=== PATIENT | female | born 1950 | race Caucasian/White ===

== ENCOUNTER → 2017-08-11 | Outpatient (CLI) | payer OTHER | LOC: M WHC 16:17 | DX: Z12.31 Encounter for screening mammogram for malignant neoplasm of breast (principal) ==

== ENCOUNTER → 2019-03-30 | Outpatient (REF) | payer OTHER ==
[2019-03-30 17:10] LABS: IRON (FE) 107 UG/DL (50-170)
[2019-04-02 11:55] LABS: HEPATITIS B SURFACE ANTIGEN NEGATIVE (NEGATIVE)
[2019-04-02 12:23] LABS: HEPATITIS B CORE ANTIBODY IGM NEGATIVE (NEGATIVE)
[2019-04-02 12:25] LABS: HEPATITIS A ANTIBODY IGM NEGATIVE (NEGATIVE)
== END ==
LOC: M LAB REF 16:17
PROVIDERS: ATTEND Nurse Practitioner Adult Health
DX: R74.8 Abnormal levels of other serum enzymes (principal)

== ENCOUNTER → 2019-04-12 | Outpatient (REF) | payer OTHER ==
[2019-04-18 15:18] LABS: Lyme Disease IgG Ab 18 kDa Ban Present (.); Lyme Disease IgG Ab 23 kDa Ban Present (.); Lyme Disease IgG Ab 28 kDa Ban Absent (.); Lyme Disease IgG Ab 30 kDa Ban Absent (.); Lyme Disease IgG Ab 39 kDa Ban Present (.); Lyme Disease IgG Ab 41 kDa Ban Present (.); Lyme Disease IgG Ab 45 kDa Ban Present (.); Lyme Disease IgG Ab 58 kDa Ban Present (.); Lyme Disease IgG Ab 66 kDa Ban Absent (.); Lyme Disease IgG Ab 93 kDa Ban Absent (.); Lyme Disease IgG West Blot Int Positive (.); Lyme Disease IgG/IgM Antibodie 2.96 ISR (0.00-0.90); Lyme Disease IgM Ab 23 kDa Ban Present (.); Lyme Disease IgM Ab 39 kDa Ban Present (.); Lyme Disease IgM Ab 41 kDa Ban Present (.); Lyme Disease IgM West Blot Int Positive (.)
== END ==
LOC: M LAB REF 12:50
PROVIDERS: ATTEND Nurse Practitioner Adult Health
DX: E83.52 Hypercalcemia (principal)

== ENCOUNTER → 2019-09-25 | Outpatient (CLI) | payer OTHER ==
--- NOTE | 2019-09-26 08:43 | REPMRS ---
Patient History The patient states she had a clinical breast exam in Jun 2019.Family history of colorectal cancer at age 69 in maternal aunt. No Hormone Replacement Therapy Digital Woman Screen Mammo: September 25, 2019 - Exam #: [id number] Bilateral CC and MLO view(s) were taken. Technologist: Shadia Lea, Technologist Prior study comparison: August 17, 2018, bilateral digital woman screen mammo performed at [facility]. August 11, 2017, digital woman screen mammo performed at [facility]. August 04, 2016, digital woman screen mammo performed at [facility]. FINDINGS: There are scattered fibroglandular densities. There are scattered benign coarse calcifications again noted. There is a stable nodule in the inferior and medial quadrant of each breast unchanged. There has been no change in the appearance of the mammogram from the prior studies. There is a mild amount of scattered fibroglandular density which is fairly symmetric. There is no interval development of dominant mass, architectural distortion, or grouped microcalcification suggestive of malignancy. 3-D tomosynthesis shows no additional findings. Assessment: BI-RADS/ACR category 2 mammogram. Benign Findings. Recommendation Routine screening mammogram of both breasts in 1 year (for women over age 40). This patient's Lifetime Breast Cancer Risk is estimated at 6.5 %. This mammogram was interpreted with the aid of an FDA-approved computer-aided dectection system. Electronically Signed By: Santo Garcia MD 09/26/19 [id number]
== END ==
LOC: M WHC 16:08
PROVIDERS: ATTEND Nurse Practitioner Adult Health
DX: Z12.31 Encounter for screening mammogram for malignant neoplasm of breast (principal)

== ENCOUNTER → 2020-07-22 | Outpatient (CLI) | payer SELFPAY | LOC: M LABSMTC 14:02 | PROVIDERS: ATTEND Pediatrics | DX: Z11.59 Encounter for screening for other viral diseases (principal) ==

== ENCOUNTER → 2020-10-27 | Outpatient (CLI) | payer MEDICARE, OTHER ==
--- NOTE | 2020-10-27 21:20 | REP ---
INDICATION: BILATERAL LEG PAIN COMPARISON: None. TECHNIQUE: AP, lateral, bilateral oblique, and coned-down views of the lumbar spine. FINDINGS: Alignment and lordosis maintained. Vertebral bodies are intact. Advanced multilevel degenerative changes include endplate sclerosis with disc space narrowing, osteophytosis and facet hypertrophy. No acute fracture/compression injury or subluxation. IMPRESSION: Advanced multilevel degenerative spondylosis. <Electronically signed by Castillo Monae > 10/27/20 [id number]
== END ==
LOC: M WUC 14:11
PROVIDERS: ATTEND Nurse Practitioner Adult Health
DX: M47.816 Spondylosis without myelopathy or radiculopathy, lumbar region (principal); M79.604 Pain in right leg; M79.605 Pain in left leg

== ENCOUNTER → 2020-10-28 | Outpatient (CLI) | payer MEDICARE ==
--- NOTE | 2020-10-28 12:02 | REPMRS ---
Patient History The patient states she has not had a clinical breast exam in over a year. Family history of colorectal cancer at age 69 in maternal aunt. No Hormone Replacement Therapy Digital Woman Screen Mammo: October 28, 2020 - Exam #: [id number] Bilateral CC and MLO view(s) were taken. Technologist: Natalie Stephens, Technologist Prior study comparison: September 25, 2019, bilateral digital woman screen mammo performed at [facility]. August 17, 2018, bilateral digital woman screen mammo performed at [facility]. August 11, 2017, digital woman screen mammo performed at [facility]. FINDINGS: There are scattered fibroglandular densities. The Volpara volumetric breast density category is:B. There are stable nodular breast parenchymal changes bilaterally. There has been no change in the appearance of the mammogram from the prior studies. There is a mild amount of scattered fibroglandular density which is fairly symmetric. There is no interval development of dominant mass, architectural distortion, or grouped microcalcification suggestive of malignancy. 3-D tomosynthesis shows no additional findings. Assessment: BI-RADS/ACR category 2 mammogram. Benign Findings. Recommendation Routine screening mammogram of both breasts in 1 year (for women over age 40). This patient's [facility] Lifetime Breast Cancer Risk is estimated at 6.2 %. This mammogram was interpreted with the aid of an FDA-approved computer-aided dectection system. Electronically Signed By: Santo Garcia MD 10/28/20 [id number]
== END ==
LOC: M WHC 10:24
PROVIDERS: ATTEND Nurse Practitioner Adult Health
DX: Z12.31 Encounter for screening mammogram for malignant neoplasm of breast (principal)

== ENCOUNTER → 2021-05-13 | Outpatient (REF) | payer MEDICARE | LOC: M LAB REF 17:53 | PROVIDERS: ATTEND Internal Medicine | DX: E83.52 Hypercalcemia (principal) ==

== ENCOUNTER → 2021-12-02 | Outpatient (CLI) | payer MEDICARE | LOC: M WHC 07:42 | PROVIDERS: ATTEND Nurse Practitioner Adult Health | DX: R92.2 Inconclusive mammogram (principal) | CPT/HCPCS: 77065; G0279 ==

== ENCOUNTER → 2022-01-05 | Outpatient (REF) | payer MEDICARE | LOC: M LAB REF 16:10 | PROVIDERS: ATTEND Nurse Practitioner Adult Health | DX: E83.52 Hypercalcemia (principal) ==

== ENCOUNTER 2022-11-23 05:59 | Day surgery (SDC) | payer MEDICARE ==
[~2022-11-23] VITALS: Ht 154.9 cm; Wt 65.8 kg
[~2022-11-23 05:59] MED LIST: CHOL10007 PO; CINN500C12 PO; ENAL1TAB46 PO; KP F1200 PO; MAGN400T2 PO; METF-838 PO; MV-M1CAP8 PO
[2022-11-23] MEDS ORDERED: CYCLOPENTOLATE 1% OPHTH SOLN 2ML BTL OD SCH (06:00)
[2022-11-23] MEDS ORDERED: PHENYLEPHRINE 2.5% OPHTH SOL 2ML OD SCH (06:00)
[2022-11-23] MEDS ORDERED: OFLOXACIN 0.3 % (OCUFLOX) OPTH SOL 5ML OD SCH (06:00)
[2022-11-23] MEDS ORDERED: TROPICAMIDE 1% OPHTH SOLN 15ML OD SCH (06:00)
[2022-11-23] MEDS ORDERED: PROPARACAINE 0.5% OPHTH SOL 15ML OD ONE (06:00)
[2022-11-23] MEDS ORDERED: LIDOCAINE 1% SDV 5ML VIAL As Ordered ONE (06:35)
[2022-11-23] MEDS ORDERED: CEFUROXIME 1MG/0.1ML INTRACAMERAL INJ As Ordered ONE (06:36)
[2022-11-23] MEDS ORDERED: BSS IRR 500ML/OMIDRIA 4ML IRR BAG (OR ONLY) As Ordered ONE (06:43)
[2022-11-23] MEDS ORDERED: fentaNYL 100 MCG/2 ML INJECTION As Ordered ONE (07:33)
[2022-11-23] MEDS ORDERED: ONDANSETRON 4MG 2ML VIAL As Ordered ONE (07:33)
[2022-11-23] MEDS ORDERED: MIDAZOLAM INJ 2MG/2ML VIAL As Ordered ONE (07:33)
[2022-11-23 07:56] VITALS: BP 145/73
== END 2022-11-23 08:24 | disposition home or self-care (01) ==
LOC: M SDC 05:59
PROVIDERS: ATTEND Ophthalmology
DX: H25.11 Age-related nuclear cataract, right eye (principal); I10 Essential (primary) hypertension; E11.9 Type 2 diabetes mellitus without complications; Z90.710 Acquired absence of both cervix and uterus; Z98.51 Tubal ligation status; Z88.2 Allergy status to sulfonamides; Z88.8 Allergy status to other drugs, medicaments and biological substances; Z79.899 Other long term (current) drug therapy; Z79.84 Long term (current) use of oral hypoglycemic drugs
CPT/HCPCS: 66984; J1097; J2250; J2405; J3010; V2632

== ENCOUNTER 2023-02-01 06:01 | Day surgery (SDC) | payer MEDICARE ==
[~2023-02-01] VITALS: Ht 154.9 cm; Wt 66.1 kg
[~2023-02-01 06:01] MED LIST changes: +CYCLOPENTOLATE 1% OPHTH SOLN 2ML BTL OS SCH; +OFLOXACIN 0.3 % (OCUFLOX) OPTH SOL 5ML OS SCH; +PHENYLEPHRINE 2.5% OPHTH SOL 2ML OS SCH; +PRED1SUS30 OD; +PROPARACAINE 0.5% OPHTH SOL 15ML OS ONE; +TROPICAMIDE 1% OPHTH SOLN 15ML OS SCH
[2023-02-01] MEDS ORDERED: INSULIN LISPRO (NovoLOG) PER UNIT SC PRN (06:10)
[2023-02-01] MEDS ORDERED: LIDOCAINE 1% SDV 5ML VIAL As Ordered ONE (06:37)
[2023-02-01] MEDS ORDERED: CEFUROXIME 1MG/0.1ML INTRACAMERAL INJ As Ordered ONE (06:38)
[2023-02-01] MEDS ORDERED: BSS IRR 500ML/OMIDRIA 4ML IRR BAG (OR ONLY) As Ordered ONE (06:38)
[2023-02-01] MEDS ORDERED: fentaNYL 100 MCG/2 ML INJECTION As Ordered ONE (07:39)
[2023-02-01] MEDS ORDERED: MIDAZOLAM INJ 2MG/2ML VIAL As Ordered ONE (07:39)
[2023-02-01] MEDS ORDERED: ONDANSETRON 4MG 2ML VIAL As Ordered ONE (07:40)
[2023-02-01 07:55] VITALS: BP 158/80; TEMP 97; O2SAT 97
== END 2023-02-01 08:30 | disposition home or self-care (01) ==
LOC: M SDC 06:01
PROVIDERS: ATTEND Ophthalmology
DX: H25.12 Age-related nuclear cataract, left eye (principal); I10 Essential (primary) hypertension; E11.9 Type 2 diabetes mellitus without complications; E78.5 Hyperlipidemia, unspecified; Z79.84 Long term (current) use of oral hypoglycemic drugs; Z79.52 Long term (current) use of systemic steroids; Z88.8 Allergy status to other drugs, medicaments and biological substances; Z88.2 Allergy status to sulfonamides
CPT/HCPCS: 66984; J0697; J1097; J2250; J2405; J3010; V2632

== ENCOUNTER → 2024-02-27 | Outpatient (REF) | payer MEDICARE ==
[~2024-02-27] MED LIST changes: -CYCLOPENTOLATE 1% OPHTH SOLN 2ML BTL OS SCH; -OFLOXACIN 0.3 % (OCUFLOX) OPTH SOL 5ML OS SCH; -PHENYLEPHRINE 2.5% OPHTH SOL 2ML OS SCH; -PROPARACAINE 0.5% OPHTH SOL 15ML OS ONE; -TROPICAMIDE 1% OPHTH SOLN 15ML OS SCH
[2024-02-27 19:13] LABS: CREATININE, URINE 77.2 MG/DL; MALB URINE SIEMENS < 3.0 MG/L; MAU/CREAT RATIO 3.8 MCG/MG (0.0-30.0)
== END ==
LOC: M LABWUC 12:29
PROVIDERS: ATTEND Registered Nurse
DX: M62.838 Other muscle spasm (principal); E11.9 Type 2 diabetes mellitus without complications

== ENCOUNTER → 2024-07-10 | Outpatient (REF) | payer MEDICARE | LOC: M SFHCADAM 08:56 | PROVIDERS: ATTEND Nurse Practitioner Family | DX: R21 Rash and other nonspecific skin eruption (principal) ==

== ENCOUNTER → 2024-07-10 | Outpatient (CLI) | payer MEDICARE ==
[2024-07-10 12:15] LABS: BASO # 0.1 10^3/uL (0.0-0.2); BASO % 0.7 % (0.0-1.0); EOS # 0.2 10^3/uL (0.0-0.5); EOS % 2.3 % (0.0-3.0); HEMATOCRIT 43.4 % (36.0-47.0); HEMOGLOBIN 14.9 g/dl (12.0-15.5); LYMPH # 1.8 10^3/uL (1.5-5.0); LYMPH % 25.4 % (24.0-44.0); MEAN CORPUSCULAR HEMOGLOBIN 30.9 pg (27.0-33.0); MEAN CORPUSCULAR HGB CONC 34.3 g/dl (32.0-36.5); MONO # 0.6 10^3/uL (0.0-0.8); MONO % 8.8 % (2.0-8.0); NEUTROPHILS # 4.3 10^3/uL (1.5-8.5); NEUTROPHILS % 62.4 % (36.0-66.0); PLATELET COUNT, AUTOMATED 243 10^3/uL (150-450); RED BLOOD COUNT 4.82 10^6/uL (4.00-5.40); WHITE BLOOD COUNT 6.9 10^3/uL (4.0-10.0)
[2024-07-10 12:23] LABS: LDH LACTATE DEHYDROGENASE 152 U/L (120-246)
[2024-07-10 12:24] LABS: ALBUMIN 3.9 G/DL (3.2-5.2); ALKALINE PHOSPHATASE 91 U/L (35-104); ALT/SGPT 29 U/L (7.0-40); AST/SGOT 16 U/L (<34); BILIRUBIN,TOTAL 0.3 MG/DL (0.3-1.2); BLOOD UREA NITROGEN 23 MG/DL (9-23); CALCIUM LEVEL 10.3 MG/DL (8.3-10.6); CARBON DIOXIDE LEVEL 28 MMOL/L (20-31); CHLORIDE LEVEL 100 MMOL/L (98-107); CREATININE FOR GFR 0.77 MG/DL (0.55-1.30); GLOMERULAR FILTRATION RATE > 60.0 (>39); GLUCOSE, FASTING 186 MG/DL (74-106); POTASSIUM SERUM 4.1 MMOL/L (3.5-5.1); SODIUM LEVEL 138 MMOL/L (136-145); TOTAL PROTEIN 7.1 G/DL (5.7-8.2)
== END ==
LOC: M WUC 09:55
PROVIDERS: ATTEND Nurse Practitioner Family
DX: R21 Rash and other nonspecific skin eruption (principal)

== ENCOUNTER → 2024-07-11 | Outpatient (REF) | payer MEDICARE | LOC: M SFHCDERM 15:16 | PROVIDERS: ATTEND Nurse Practitioner Family | DX: R21 Rash and other nonspecific skin eruption (principal); Z53.9 Procedure and treatment not carried out, unspecified reason ==

== ENCOUNTER → 2024-07-16 | Outpatient (CLI) | payer MEDICARE | LOC: M LAB 07:35 | PROVIDERS: ATTEND Nurse Practitioner Family | DX: R21 Rash and other nonspecific skin eruption (principal) ==

== ENCOUNTER → 2024-08-27 | Outpatient (CLI) | payer MEDICARE ==
[2024-08-27 11:13] LABS: BASO # 0.1 10^3/uL (0.0-0.2); BASO % 0.8 % (0.0-1.0); EOS # 0.1 10^3/uL (0.0-0.5); EOS % 1.3 % (0.0-3.0); HEMATOCRIT 44.9 % (36.0-47.0); HEMOGLOBIN 15.3 g/dl (12.0-15.5); LYMPH # 1.6 10^3/uL (1.5-5.0); LYMPH % 25.4 % (24.0-44.0); MEAN CORPUSCULAR HEMOGLOBIN 30.4 pg (27.0-33.0); MEAN CORPUSCULAR HGB CONC 34.1 g/dl (32.0-36.5); MEAN CORPUSCULAR VOLUME 89.3 fl (80.0-96.0); MONO # 0.5 10^3/uL (0.0-0.8); MONO % 8.2 % (2.0-8.0); NEUTROPHILS # 4.1 10^3/uL (1.5-8.5); PLATELET COUNT, AUTOMATED 231 10^3/uL (150-450); RED BLOOD COUNT 5.03 10^6/uL (4.00-5.40); WHITE BLOOD COUNT 6.4 10^3/uL (4.0-10.0)
[2024-08-27 11:28] LABS: HEMOGLOBIN A1c 7.4 % (4.0-6.0)
[2024-08-27 11:31] LABS: ALBUMIN 3.9 G/DL (3.2-5.2); ALKALINE PHOSPHATASE 87 U/L (35-104); ALT/SGPT 27 U/L (7.0-40); AST/SGOT 20 U/L (<34); BILIRUBIN,TOTAL 0.6 MG/DL (0.3-1.2); BLOOD UREA NITROGEN 20 MG/DL (9-23); CALCIUM LEVEL 9.4 MG/DL (8.3-10.6); CARBON DIOXIDE LEVEL 30 MMOL/L (20-31); CHLORIDE LEVEL 101 MMOL/L (98-107); CHOLESTEROL LEVEL 228 MG/DL (<200); CREATININE FOR GFR 0.79 MG/DL (0.55-1.30); GLOMERULAR FILTRATION RATE > 60.0 (>39); GLUCOSE, FASTING 131 MG/DL (74-106); HDL CHOLESTEROL 48.5 MG/DL (>40); LDL CHOLESTEROL 134.9 MG/DL (<100); NON-HDL-C 179.5 MG/DL; POTASSIUM SERUM 4.6 MMOL/L (3.5-5.1); SODIUM LEVEL 138 MMOL/L (136-145); TOTAL 25(OH) VITAMIN D 44.3 NG/ML (20.0-100.0); TOTAL PROTEIN 7.3 G/DL (5.7-8.2); TRIGLYCERIDES LEVEL 223 MG/DL (<150)
== END ==
LOC: M WUC 08:28
PROVIDERS: ATTEND Registered Nurse
DX: E78.2 Mixed hyperlipidemia (principal); E11.9 Type 2 diabetes mellitus without complications; I10 Essential (primary) hypertension; E55.9 Vitamin D deficiency, unspecified

== ENCOUNTER → 2024-11-19 | Outpatient (CLI) | payer MEDICARE ==
[2024-11-19 13:08] LABS: HEMOGLOBIN A1c 6.9 % (4.0-6.0)
== END ==
LOC: M WUC 08:26
PROVIDERS: ATTEND Registered Nurse
DX: E11.9 Type 2 diabetes mellitus without complications (principal)

== ENCOUNTER → 2025-04-29 | Outpatient (CLI) | payer MEDICARE ==
[2025-04-29 12:58] LABS: BASO # 0.1 10^3/uL (0.0-0.2); BASO % 0.7 % (0.0-1.0); EOS # 0.1 10^3/uL (0.0-0.5); EOS % 0.7 % (0.0-3.0); LYMPH # 1.9 10^3/uL (1.5-5.0); LYMPH % 26.8 % (24.0-44.0); MONO # 0.8 10^3/uL (0.0-0.8); MONO % 11.1 % (2.0-8.0); NEUTROPHILS # 4.2 10^3/uL (1.5-8.5); NEUTROPHILS % 60.3 % (36.0-66.0); PLATELET COUNT, AUTOMATED 256 10^3/uL (150-450)
[2025-04-29 13:16] LABS: ESTIMATED AVERAGE GLUCOSE 166.0 MG/DL (60-110)
[2025-04-29 13:30] LABS: ALT/SGPT 29.0 U/L (7.0-40); AST/SGOT 24.0 U/L (<34); CALCIUM LEVEL 10.0 MG/DL (8.3-10.6); CARBON DIOXIDE LEVEL 29.0 MMOL/L (20-31); CHLORIDE LEVEL 100.0 MMOL/L (98-107); CHOLESTEROL LEVEL 239.0 MG/DL (<200); CHOLESTEROL RISK RATIO 4.86 (<5); CREATININE FOR GFR 0.86 MG/DL (0.55-1.30); GLOMERULAR FILTRATION RATE 71.7 (>39); LDL CHOLESTEROL 143.9 MG/DL (<100); NON-HDL-C 189.9 MG/DL; POTASSIUM SERUM 4.3 MMOL/L (3.5-5.1); SODIUM LEVEL 137.0 MMOL/L (136-145); TRIGLYCERIDES LEVEL 230.0 MG/DL (<150)
== END ==
LOC: M WUC 08:02
PROVIDERS: ATTEND Registered Nurse
DX: E11.9 Type 2 diabetes mellitus without complications (principal); E78.2 Mixed hyperlipidemia

== ENCOUNTER → 2025-07-22 | Outpatient (CLI) | payer MEDICARE ==
[2025-07-22 12:36] LABS: BASO # 0.1 10^3/uL (0.0-0.2); BASO % 0.9 % (0.0-1.0); EOS # 0.1 10^3/uL (0.0-0.5); EOS % 1.0 % (0.0-3.0); LYMPH # 1.8 10^3/uL (1.5-5.0); LYMPH % 22.3 % (24.0-44.0); MONO # 0.8 10^3/uL (0.0-0.8); MONO % 10.3 % (2.0-8.0); NEUTROPHILS # 5.1 10^3/uL (1.5-8.5); NEUTROPHILS % 65.2 % (36.0-66.0); PLATELET COUNT, AUTOMATED 268 10^3/uL (150-450)
[2025-07-22 13:02] LABS: ESTIMATED AVERAGE GLUCOSE 180.0 MG/DL (60-110)
[2025-07-22 13:15] LABS: ALT/SGPT 23.0 U/L (7.0-40); AST/SGOT 23.0 U/L (<34); CALCIUM LEVEL 9.5 MG/DL (8.3-10.6); CARBON DIOXIDE LEVEL 30.0 MMOL/L (20-31); CHLORIDE LEVEL 98.0 MMOL/L (98-107); CREATININE FOR GFR 0.86 MG/DL (0.55-1.30); GLOMERULAR FILTRATION RATE 71.7 (>39); POTASSIUM SERUM 4.3 MMOL/L (3.5-5.1); SODIUM LEVEL 136.0 MMOL/L (136-145)
== END ==
LOC: M WUC 08:25
PROVIDERS: ATTEND Registered Nurse
DX: E11.9 Type 2 diabetes mellitus without complications (principal)